=== PATIENT | female | born 1985 | race Caucasian/White ===

== ENCOUNTER 2019-02-10 21:15 | Inpatient (IN) ==
[2019-02-10] MEDS ORDERED: SODIUM CHLORIDE 0.9% 1000ML 1,000 ML IV ONE (21:35)
[2019-02-10] MEDS ORDERED: PIPERACILLIN/TAZOBACTAM 4.5 GM/120 ML BAG IV ONE (21:56)
[2019-02-10 21:58] LABS: Basophils # (auto) 0.01 K/uL (0-0.2); Basophils % (auto) 0.1 %; Eosinophils # (auto) 0.02 K/uL (0-0.5); Eosinophils % (auto) 0.2 %; Hematocrit (blood only) 37.1 % (37-47); Hemoglobin 12.6 g/dL (12.0-16.0); Immature Granulocytes # (auto) 0.05 K/uL (0.00-0.02); Immature Granulocytes % (auto) 0.6 %; Lymphocytes # (auto) 1.32 K/uL (1.2-3.4); Lymphocytes % (auto) 15.4 %; Mean Corpuscular Volume 105.1 fL (80-100); Mean Platelet Volume 9.4 fL (7.4-10.4); Monocytes # (auto) 0.59 K/uL (0.11-0.59); Monocytes % (auto) 6.9 %; Neutrophils # (auto) 6.58 K/uL (1.4-6.5); Neutrophils % (auto) 76.8 %; Platelet Count 237 K/uL (130-400); RDW Coefficient of Variation 12.6 % (11.5-14.5); RDW Standard Deviation 48.6 fL (36.4-46.3); Red Blood Count 3.53 M/uL (4.2-5.4); White Blood Count 8.57 K/uL (4.8-10.8)
[2019-02-10 22:06] LABS: Appearance Urine Clear (Clear); Bacteria Urine Automated Negative (Negative); Bilirubin Urine Negative (Negative); Blood Urine 2+ (Negative); Cast Urine Automated 0 /lpf (0-5); Color Urine Yellow; Glucose Urine UA Negative (Negative); Ketones Urine Negative (Negative); Leukocyte Esterase Urine Negative (Negative); Nitrite Urine Negative (Negative); Protein Urine Negative (Negative); Specific Gravity Urine 1.012 (1.000-1.030); Urobilinogen Urine Negative (Negative)
--- NOTE | 2019-02-10 22:06 | History & Physical Report ---
Date of Service February 10, 2019 Assessment & Plan (1) endometritis: 33 yo s/p on 01/30, Suction D&C for retained POC yesterday, now with fever/ chills/ abdominal pain suggesting endometritis Plan to admit, monitor, labs, IV AB for 48 hours and/ or 24 hours of afebrile All questions were answered History of Present Illness Chief Complaint: Fever and abdominal pain Primary Care Provider: Liana Aguirre DO Patient is a 33 yo s/p on 01/30, uncomplicated She was here in ER yesterday with increased vaginal bleeding, fever / chills, found to have retained Placenta She was taken to OR for Suction, D&C under US guidance She received Unasyn 1dose preop It was uncomplicated and she was sent home afterwards She started to feel " crappy" this afternoon with fever/ chills/ abdominal pain Bleeding had been minimal Her temp at home was 101.8 after 600 mg of Motrin Repeat was 101.4 She is sad and crying in her room now 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[employer] She is breast feeding and likes to bring her baby from home to stay with her Allergies Allergy/AdvReac Type Severity Reaction Status Date / Time shellfish derived Allergy Intermediate Nausea/Vomi Verified 02/10/19 22:03 ting/Diarrh ea Home Medications Home Medications Medication Instructions Recorded Confirmed Type 1 tab PO HS 02/09/19 02/09/19 History docusate sodium [Colace] 200 mg PO DAILY 02/09/19 02/09/19 History ibuprofen 600 mg PO Q6H #30 tab 02/09/19 Rx sertraline [Zoloft] 100 mg PO HS 02/09/19 02/09/19 History Patient History Medical History No significant past medical history No significant past surgical history Recent childbirth Social History Preferred Language: Kosovan Communication Ability: Effective Visual Impairment: No Limitations Hearing Ability: Normal Beliefs That Will Affect Care: None marital status: Current Living Situation: Spouse current occupational status: employed Feels Safe at Home: Yes Smoking Status: Never smoker Hx Alcohol Use: No OB History 4 FT [employer] History No h/o STD Review of Systems All systems reviewed & are unremarkable except as noted in HPI & below + cough throat irritation since surgery Physical Exam Constitutional: WD/WN, vitals as above well developed and well nourished Sad crying Eyes: PERRL, conjunctivae normal, anicteric sclerae ENMT: Normal oropharynx Respiratory: normal respiratory effort, lungs clear to auscultation normal respiratory effort Auscultation: lungs clear to auscultation bilaterally Cardiovascular: RRR, no murmur, no edema Rate/Rhythm: regular rate Heart Sounds: normal S1 and normal S2 Gastrointestinal (Abdomen): Tenderness on lower abdomen Musculoskeletal: Ext NT no edema Results & Data Vital Signs (Past 12 Hours) Vital Signs Temp Pulse Resp BP Pulse Ox 02/10/19 21:23 36.9 C 72 18 114/61 97
[2019-02-10 22:16] LABS: BUN Creatinine Ratio 14.3 (10-20); Calcium 8.1 mg/dl (8.5-10.1); Est GFR (African American) 113.2; Est GFR (Non-African American) 97.7; Potassium 3.8 mmol/L (3.5-5.1)
--- NOTE | 2019-02-10 23:07 | Emergency Department Note ---
Entered by Luke Campos acting as a scribe for Bogdan Parekh History of Present Illness General Chief complaint: Fever Stated complaint: POST , DNE FEVER Time Seen by Provider: 02/10/19 21:31 Source: patient History of Present Illness Provider complaint: Fever Onset (ago): hour(s) Location: left and right Maximum Pain Intensity: 4 Current Pain Intensity: 4 Associated symptoms: no chest pain, no nausea/vomiting and no shortness of breath The patient is a 33 year old female who presents to the Emergency Room with complaints of a fever that began today. The patient states she was seen yesterday and underwent an RN ER procedure. She is presently complaining of lower abdominal pain mostly in her suprapubic area in addition to the fever. Reports fever of 101 prior to arrival. Patient did take antipyretics prior to arrival. The patient denies nausea/vomiting, pain with urination, chest pain, and shortness of breath. Patient states that she spoke with RN ER [facility] disease and insect control boss who advised her to come into the emergency department today. Home Medications Home Medications Medication Instructions Recorded Confirmed Type 1 tab PO HS 02/09/19 02/10/19 History docusate sodium [Colace] 200 mg PO DAILY 02/09/19 02/10/19 History sertraline [Zoloft] 100 mg PO HS 02/09/19 02/10/19 History ibuprofen 600 mg PO Q6H PRN 02/10/19 02/10/19 History polyethylene glycol 3350 [Miralax] 17 g PO ONCE PRN 02/10/19 02/10/19 History Allergies Allergy/AdvReac Type Severity Reaction Status Date / Time shellfish derived Allergy Intermediate Nausea/Vomi Verified 02/10/19 22:03 ting/Diarrh ea Past Med/Surg History Medical History No significant past medical history No significant past surgical history Recent childbirth Social History Preferred Language: Yi Communication Ability: Effective Visual Impairment: No Limitations Hearing Ability: Normal Beliefs That Will Affect Care: None marital status: Current Living Situation: Spouse current occupational status: employed Feels Safe at Home: Yes Smoking Status: Never smoker Hx Alcohol Use: No Review of Systems See HPI for pertinent positives & negatives. and A total of 10 systems reviewed and were otherwise negative Physical Exam Vital Signs Vital Signs - 24 hr 02/10/19 21:23 Temperature 36.9 C Temperature Source Oral Sepsis Recent Fever Within 48 Hours Yes Sepsis Action Taken by Nursing No Action Required Pulse Rate 72 Respiratory Rate 18 Blood Pressure 114/61 Blood Pressure Mean 78 Blood Pressure Position Sitting Pulse Oximetry 97 Oxygen Delivery Method Room Air GENERAL: She is oriented to person, place, and time. She appears well-developed and well-nourished. She does not appear distressed. HENT: Exam performed. Head: Normocephalic and atraumatic. Right Ear: External ear normal. No mastoid tenderness. Left Ear: External ear normal. No mastoid tenderness. Mouth/Throat: The oropharynx is clear and moist. No trismus in the jaw. No dental abscesses or uvula swelling. No oropharyngeal exudate or tonsillar abscesses. EYES: Conjunctivae and EOM are normal. Pupils are equal, round, and reactive to light. Right eye exhibits no discharge. Left eye exhibits no discharge. No scleral icterus. NECK: Normal range of motion. Neck supple. No JVD present. No spinous process tenderness present. No carotid bruit present. No rigidity. No tracheal deviation and normal range of motion present. No Brudzinski's sign and no Kernig's sign noted. CV: Normal rate, regular rhythm, normal heart sounds and intact distal pulses. There is no peripheral edema. Palpable radial pulses bue. PULM/CHEST: Effort normal and breath sounds normal. No respiratory distress. No stridor. She has no wheezes. She has no rales. Chest Wall: She exhibits no tenderness. ABD: The abdomen is soft. Bowel sounds are normal. She has no distension. No mass is present. There is pain on palpation to the suprapubic area. There is no rebound, no guarding, no Maurice's sign and no tenderness at McBurney's point. Rovsig negative MUSC/SKEL: Normal range of motion. There is no peripheral edema, tenderness or deformity. LYMPH: No cervical adenopathy. NEURO: She is alert and oriented to person, place, and time. She has normal strength. No cranial nerve deficit or sensory deficit. Coordination and gait normal. GCS eye subscore is 4. GCS verbal subscore is 5. GCS motor subscore is 6. cerbellar tests wnl. SKIN: Skin is warm and dry. She is not diaphoretic. PSYCH: She has a normal mood and affect. Her behavior is normal. Judgment and thought content normal. Course 2131: The patient was evaluated in room B12. A complete history and physical exam was performed.The patient was seen yesterday at [place] [facility] 1 day. She was then sent to [facility]. At that time, she had leukocytosis of 11.2, US that showed 19mm heterogenous mass which was a retained product of conception. She underwent a dilation and evacuation. 2137: I spoke with Alda RN ER. She wants the patient admitted to her service, and wants her to receive a dose of Zosyn. Administered Medications Piperacillin Sod/Tazobactam Sod (Zosyn) 4.5 gm in 120 mls @ 30 mls/hr IV NOW ONE Stop: 02/11/19 01:55 Last Admin: 02/10/19 22:21 Dose: 30 mls/hr Documented by: [id number] Discontinued Medications Sodium Chloride (Nss 1000ml) 1,000 mls @ 999 mls/hr IV .Q1H1M ONE Stop: 02/10/19 22:35 Last Admin: 02/10/19 21:51 Dose: 999 mls/hr Documented by: [id number] Medical Decision Making Medical Records Attestation: I reviewed the patient's medical records. Home Medications Current Medication List: was personally reviewed by me Laboratory Data Attestation: I reviewed the patient's lab results. Result diagrams: 02/10/19 21:51 02/10/19 21:51 Lab Results 02/10/19 02/10/19 02/10/19 Range/Units 21:42 21:51 21:51 WBC 8.57 (4.8-10.8) K/uL RBC 3.53 L (4.2-5.4) M/uL Hgb 12.6 (12.0-16.0) g/dL Hct 37.1 (37-47) % MCV 105.1 H (80-100) fL MCH 35.7 H (25-34) pg MCHC 34.0 (32-36) g/dL RDW Std Deviation 48.6 H (36.4-46.3) fL RDW Coeff of [place] 12.6 (11.5-14.5) % Plt Count 237 (130-400) K/uL MPV 9.4 (7.4-10.4) fL Immature Gran % (Auto) 0.6 % Neut % (Auto) 76.8 % Lymph % (Auto) 15.4 % [place] % (Auto) 6.9 % Eos % (Auto) 0.2 % Baso % (Auto) 0.1 % Immature Gran # (Auto) 0.05 H (0.00-0.02) K/uL Neut # (Auto) 6.58 H (1.4-6.5) K/uL Lymph # (Auto) 1.32 (1.2-3.4) K/uL [place] # (Auto) 0.59 (0.11-0.59) K/uL Eos # (Auto) 0.02 (0-0.5) K/uL Baso # (Auto) 0.01 (0-0.2) K/uL Sodium 142 (136-145) mmol/L Potassium 3.8 (3.5-5.1) mmol/L Chloride 111 H (98-107) mmol/L Carbon Dioxide 23 (21-32) mmol/L Anion Gap 8.0 (3-11) BUN 11 (7-18) mg/dl Creatinine 0.79 (0.6-1.2) mg/dl Est Cr Clr Drug Dosing 108.0 ml/min Est GFR ( Amer) 113.2 Est GFR (Non-Af Amer) 97.7 BUN/Creatinine Ratio 14.3 (10-20) Glucose 92 (70-99) mg/dl Lactate (0.4-2.0) mmol/L Calcium 8.1 L (8.5-10.1) mg/dl Urine Color Yellow Urine Appearance Clear (Clear) Urine pH 7.0 (4.5-7.5) Ur Specific [place] 1.012 (1.000-1.030) Urine Protein Negative (Negative) Urine Glucose (UA) Negative (Negative) Urine Ketones Negative (Negative) Urine Blood 2+ H (Negative) Urine Nitrite Negative (Negative) Urine Bilirubin Negative (Negative) Urine Urobilinogen Negative (Negative) Ur Leukocyte Esterase Negative (Negative) Urine WBC (Auto) 1-5 (0-5) /hpf Urine RBC (Auto) 5-10 H (0-4) /hpf U Hyaline Cast (Auto) 0 (0-5) /lpf U Epithel Cells (Auto) 5-10 H (0-5) /lpf Urine Bacteria (Auto) Negative (Negative) 02/10/19 Range/Units 21:51 WBC (4.8-10.8) K/uL RBC (4.2-5.4) M/uL Hgb (12.0-16.0) g/dL Hct (37-47) % MCV (80-100) fL MCH (25-34) pg MCHC (32-36) g/dL RDW Std Deviation (36.4-46.3) fL RDW Coeff of [place] (11.5-14.5) % Plt Count (130-400) K/uL MPV (7.4-10.4) fL Immature Gran % (Auto) % Neut % (Auto) % Lymph % (Auto) % [place] % (Auto) % Eos % (Auto) % Baso % (Auto) % Immature Gran # (Auto) (0.00-0.02) K/uL Neut # (Auto) (1.4-6.5) K/uL Lymph # (Auto) (1.2-3.4) K/uL [place] # (Auto) (0.11-0.59) K/uL Eos # (Auto) (0-0.5) K/uL Baso # (Auto) (0-0.2) K/uL Sodium (136-145) mmol/L Potassium (3.5-5.1) mmol/L Chloride (98-107) mmol/L Carbon Dioxide (21-32) mmol/L Anion Gap (3-11) BUN (7-18) mg/dl Creatinine (0.6-1.2) mg/dl Est Cr Clr Drug Dosing ml/min Est GFR ( Amer) Est GFR (Non-Af Amer) BUN/Creatinine Ratio (10-20) Glucose (70-99) mg/dl Lactate 1.0 (0.4-2.0) mmol/L Calcium (8.5-10.1) mg/dl Urine Color Urine Appearance (Clear) Urine pH (4.5-7.5) Ur Specific [place] (1.000-1.030) Urine Protein (Negative) Urine Glucose (UA) (Negative) Urine Ketones (Negative) Urine Blood (Negative) Urine Nitrite (Negative) Urine Bilirubin (Negative) Urine Urobilinogen (Negative) Ur Leukocyte Esterase (Negative) Urine WBC (Auto) (0-5) /hpf Urine RBC (Auto) (0-4) /hpf U Hyaline Cast (Auto) (0-5) /lpf U Epithel Cells (Auto) (0-5) /lpf Urine Bacteria (Auto) (Negative) [facility] Narrative 2131: The patient was evaluated in room B12. A complete history and physical exam was performed.The patient was seen yesterday at [place] [facility] 1 day. She was then sent to [facility] ED. At that time, she had leukocytosis of 11.2, US that showed 19mm heterogenous mass which was a retained product of conception. She underwent a dilation and evacuation. 2137: I spoke with Alda RN ER. She wants the patient admitted to her service, and wants her to receive a dose of Zosyn. Impression & Plan Postoperative fever Discharge Plan Visit Data Chief Complaint: Fever Stated Complaint: POST , DNE FEVER ED Provider: Bogdan Parekh Discharge Problem: Postoperative fever Patient Disposition: Being Evaluated by Hospitalist Forms Stand Alone Forms: My [facility] Prescriptions Prescriptions: No Action sertraline [Zoloft] 100 mg Tablet 100 mg PO HS RF: 0 docusate sodium [Colace] 100 mg Capsule 200 mg PO DAILY RF: 0 28-800 mg-mcg Tablet 1 tab PO HS RF: 0 polyethylene glycol 3350 [Miralax] 17 gram Powder In Packet 17 g PO ONCE PRN (Reason: Constipation) RF: 0 ibuprofen 600 mg tablet 600 mg PO Q6H PRN (Reason: Pain) RF: 0 Referrals Referrals: Liana Aguirre DO [Primary Care Provider] - The scribe's documentation has been prepared under my direction and personally reviewed by me in its entirety. I confirm that the note above accurately reflects all work, treatment, procedures, and medical decision making performed by me.
[2019-02-10] MEDS ORDERED: PIPERACILL/TAZOBAC CONSULT ACTIVE PRN (23:27)
[2019-02-11] MEDS ORDERED: LACTATED RINGER'S 1,000 ML IV SCH (00:43)
[2019-02-11] MEDS ORDERED: ONDANSETRON INJ 2 MG/ML 2 ML VIAL IV PRN (00:43)
[2019-02-11] MEDS: IBUPROFEN 600 MG TAB PO PRN ×3 (00:54→14:33)
[2019-02-11] MEDS ORDERED: PIPERACILLIN/TAZOBACTAM 4.5 GM in DEXTROSE 5% 100 ML IV SCH (04:00)
[2019-02-11] MEDS: ACETAMINOPHEN 325 MG TAB PO PRN ×3 (04:20→20:08)
[2019-02-11] MEDS: PIPERACILLIN/TAZOBACTAM 3.375 GM in DEXTROSE 5% 100 ML IV SCH ×3 (04:22→20:09)
[2019-02-11 07:01] LABS: Basophils # (auto) 0.02 K/uL (0-0.2); Basophils % (auto) 0.3 %; Eosinophils # (auto) 0.02 K/uL (0-0.5); Eosinophils % (auto) 0.3 %; Hemoglobin 11.9 g/dL (12.0-16.0); Immature Granulocytes # (auto) 0.06 K/uL (0.00-0.02); Immature Granulocytes % (auto) 0.9 %; Lymphocytes # (auto) 1.38 K/uL (1.2-3.4); Lymphocytes % (auto) 20.9 %; Mean Corpuscular Hgb Conc 33.1 g/dL (32-36); Mean Corpuscular Volume 106.5 fL (80-100); Mean Platelet Volume 9.5 fL (7.4-10.4); Monocytes # (auto) 0.52 K/uL (0.11-0.59); Monocytes % (auto) 7.9 %; Neutrophils # (auto) 4.61 K/uL (1.4-6.5); Neutrophils % (auto) 69.7 %; Platelet Count 222 K/uL (130-400); Red Blood Count 3.38 M/uL (4.2-5.4); White Blood Count 6.61 K/uL (4.8-10.8)
[2019-02-11 07:32] LABS: Albumin Level 2.2 gm/dl (3.4-5.0); BUN Creatinine Ratio 13.4 (10-20); Calcium 7.4 mg/dl (8.5-10.1); Creatinine Clr Calc Pharmacy 121.9 ml/min; Potassium 3.5 mmol/L (3.5-5.1)
[2019-02-11 07:41] LABS: Albumin Globulin Ratio 0.6 (0.9-2); Bilirubin,Total 0.2 mg/dl (0.2-1); Globulin 3.4 gm/dl (2.5-4.0); Total Protein 5.6 gm/dl (6.4-8.2)
[2019-02-11] MEDS: DOCUSATE SODIUM 100 MG CAP PO SCH (09:05)
--- NOTE | 2019-02-11 09:16 | Obstetrical Progress Note ---
Date of Service February 11, 2019 Subjective Patient is seen and examined. She feels better in terms of abdominal pain and general symptoms Complains of cold sore she got this morning, desires Acyclovir cream. Ambulating without dizziness Voiding without difficulty Tolerating regular diet with out N&V Bleeding is minimal No fever/ chills/ CP/ SOB/ N&V/ Leg pain Pumping breast milk without problems Vital Signs Temp Pulse Pulse Resp BP BP Pulse Ox 02/11/19 04:20 36.9 C 64 18 112/73 97 02/11/19 01:02 37.4 C 67 20 107/64 98 02/11/19 00:06 62 16 110/62 100 02/10/19 23:15 59 L 16 108/60 100 02/10/19 21:23 36.9 C 72 18 114/61 97 02/11/19 02/11/19 02/10/19 Range/Units 06:43 06:43 21:51 WBC 6.61 (4.8-10.8) K/uL RBC 3.38 L (4.2-5.4) M/uL Hgb 11.9 L (12.0-16.0) g/dL Hct 36.0 L (37-47) % MCV 106.5 H (80-100) fL MCH 35.2 H (25-34) pg MCHC 33.1 (32-36) g/dL RDW Std Deviation 51.0 H (36.4-46.3) fL RDW Coeff of [place] 13.0 (11.5-14.5) % Plt Count 222 (130-400) K/uL MPV 9.5 (7.4-10.4) fL Immature Gran % (Auto) 0.9 % Neut % (Auto) 69.7 % Lymph % (Auto) 20.9 % [place] % (Auto) 7.9 % Eos % (Auto) 0.3 % Baso % (Auto) 0.3 % Immature Gran # (Auto) 0.06 H (0.00-0.02) K/uL Neut # (Auto) 4.61 (1.4-6.5) K/uL Lymph # (Auto) 1.38 (1.2-3.4) K/uL [place] # (Auto) 0.52 (0.11-0.59) K/uL Eos # (Auto) 0.02 (0-0.5) K/uL Baso # (Auto) 0.02 (0-0.2) K/uL Sodium 142 (136-145) mmol/L Potassium 3.5 (3.5-5.1) mmol/L Chloride 112 H (98-107) mmol/L Carbon Dioxide 25 (21-32) mmol/L Anion Gap 5.0 (3-11) BUN 9 (7-18) mg/dl Creatinine 0.70 (0.6-1.2) mg/dl Est Cr Clr Drug Dosing 121.9 ml/min Est GFR ( Amer) 131.0 Est GFR (Non-Af Amer) 113.0 BUN/Creatinine Ratio 13.4 (10-20) Glucose 105 H (70-99) mg/dl Lactate 1.0 (0.4-2.0) mmol/L Calcium 7.4 L (8.5-10.1) mg/dl Total Bilirubin 0.2 (0.2-1) mg/dl AST 16 (15-37) U/L ALT 21 (12-78) U/L Alkaline Phosphatase 77 (45-117) U/L Total Protein 5.6 L (6.4-8.2) gm/dl Albumin 2.2 L (3.4-5.0) gm/dl Globulin 3.4 (2.5-4.0) gm/dl Albumin/Globulin Ratio 0.6 L (0.9-2) Urine Color Urine Appearance (Clear) Urine pH (4.5-7.5) Ur Specific [place] (1.000-1.030) Urine Protein (Negative) Urine Glucose (UA) (Negative) Urine Ketones (Negative) Urine Blood (Negative) Urine Nitrite (Negative) Urine Bilirubin (Negative) Urine Urobilinogen (Negative) Ur Leukocyte Esterase (Negative) Urine WBC (Auto) (0-5) /hpf Urine RBC (Auto) (0-4) /hpf U Hyaline Cast (Auto) (0-5) /lpf U Epithel Cells (Auto) (0-5) /lpf Urine Bacteria (Auto) (Negative) 02/10/19 02/10/19 02/10/19 Range/Units 21:51 21:51 21:42 WBC 8.57 (4.8-10.8) K/uL RBC 3.53 L (4.2-5.4) M/uL Hgb 12.6 (12.0-16.0) g/dL Hct 37.1 (37-47) % MCV 105.1 H (80-100) fL MCH 35.7 H (25-34) pg MCHC 34.0 (32-36) g/dL RDW Std Deviation 48.6 H (36.4-46.3) fL RDW Coeff of [place] 12.6 (11.5-14.5) % Plt Count 237 (130-400) K/uL MPV 9.4 (7.4-10.4) fL Immature Gran % (Auto) 0.6 % Neut % (Auto) 76.8 % Lymph % (Auto) 15.4 % [place] % (Auto) 6.9 % Eos % (Auto) 0.2 % Baso % (Auto) 0.1 % Immature Gran # (Auto) 0.05 H (0.00-0.02) K/uL Neut # (Auto) 6.58 H (1.4-6.5) K/uL Lymph # (Auto) 1.32 (1.2-3.4) K/uL [place] # (Auto) 0.59 (0.11-0.59) K/uL Eos # (Auto) 0.02 (0-0.5) K/uL Baso # (Auto) 0.01 (0-0.2) K/uL Sodium 142 (136-145) mmol/L Potassium 3.8 (3.5-5.1) mmol/L Chloride 111 H (98-107) mmol/L Carbon Dioxide 23 (21-32) mmol/L Anion Gap 8.0 (3-11) BUN 11 (7-18) mg/dl Creatinine 0.79 (0.6-1.2) mg/dl Est Cr Clr Drug Dosing 108.0 ml/min Est GFR ( Amer) 113.2 Est GFR (Non-Af Amer) 97.7 BUN/Creatinine Ratio 14.3 (10-20) Glucose 92 (70-99) mg/dl Lactate (0.4-2.0) mmol/L Calcium 8.1 L (8.5-10.1) mg/dl Total Bilirubin (0.2-1) mg/dl AST (15-37) U/L ALT (12-78) U/L Alkaline Phosphatase (45-117) U/L Total Protein (6.4-8.2) gm/dl Albumin (3.4-5.0) gm/dl Globulin (2.5-4.0) gm/dl Albumin/Globulin Ratio (0.9-2) Urine Color Yellow Urine Appearance Clear (Clear) Urine pH 7.0 (4.5-7.5) Ur Specific [place] 1.012 (1.000-1.030) Urine Protein Negative (Negative) Urine Glucose (UA) Negative (Negative) Urine Ketones Negative (Negative) Urine Blood 2+ H (Negative) Urine Nitrite Negative (Negative) Urine Bilirubin Negative (Negative) Urine Urobilinogen Negative (Negative) Ur Leukocyte Esterase Negative (Negative) Urine WBC (Auto) 1-5 (0-5) /hpf Urine RBC (Auto) 5-10 H (0-4) /hpf U Hyaline Cast (Auto) 0 (0-5) /lpf U Epithel Cells (Auto) 5-10 H (0-5) /lpf Urine Bacteria (Auto) Negative (Negative) PE: General: Alert, orientedx3, NAD Abd: soft, NT, fundus firm, below Umbilicus Perineum intact, Lochia rubra minimal Ext; NT, no edema AP: 33 yo s/p on 01/30, Suction D&C on 02/09 Admitted for endometritis On Zosyn VSS Afebrile doing well Continue to monitor All questions were answered D/C home tomorrow Results & Data Vital Signs (Past 12 Hours) Vital Signs Temp Pulse Pulse Resp BP BP Pulse Ox 02/11/19 04:20 36.9 C 64 18 112/73 97 02/11/19 01:02 37.4 C 67 20 107/64 98 02/11/19 00:06 62 16 110/62 100 02/10/19 23:15 59 L 16 108/60 100 02/10/19 21:23 36.9 C 72 18 114/61 97
[2019-02-11] MEDS: ACYCLOVIR 5% OINT 15 GM TUBE EXT SCH ×3 (09:53→21:20)
[2019-02-11] MEDS ORDERED: PRENATAL VITAMIN 1 TAB PO SCH (21:00)
[2019-02-11] MEDS ORDERED: SERTRALINE HCL 100 MG TABLET PO SCH (21:00)
[2019-02-12] MEDS: IBUPROFEN 600 MG TAB PO PRN ×2 (00:26→08:09)
[2019-02-12] MEDS: PIPERACILLIN/TAZOBACTAM 3.375 GM in DEXTROSE 5% 100 ML IV SCH (04:25)
[2019-02-12 07:01] LABS: Creatinine Clr Calc Pharmacy 112.3 ml/min; Est GFR (African American) 118.6; Est GFR (Non-African American) 102.3
[2019-02-12] MEDS: DOCUSATE SODIUM 100 MG CAP PO SCH (08:08)
[2019-02-12] MEDS: ACYCLOVIR 5% OINT 15 GM TUBE EXT SCH (08:09)
--- NOTE | 2019-02-12 09:44 | Obstetrical Progress Note ---
Date of Service February 12, 2019 Subjective doing well plans to be discharged Physical Exam Constitutional: WD/WN, vitals as above comfortable Abdomen soft non-tender no edema neg Nadege's for discharge Results & Data Vital Signs (Past 12 Hours) Vital Signs Temp Pulse Resp BP Pulse Ox 02/12/19 08:27 36.7 C 58 L 18 109/69 96 02/12/19 04:15 36.5 C 56 L 16 120/75 98 02/12/19 00:15 36.7 C 66 18 114/69 96 Laboratory Results Laboratory Results - last 72 hr 02/10/19 02/10/19 02/10/19 21:42 21:51 21:51 WBC 8.57 RBC 3.53 L Hgb 12.6 Hct 37.1 MCV 105.1 H MCH 35.7 H MCHC 34.0 RDW Std Deviation 48.6 H RDW Coeff of [place] 12.6 Plt Count 237 MPV 9.4 Immature Gran % (Auto) 0.6 Neut % (Auto) 76.8 Lymph % (Auto) 15.4 [place] % (Auto) 6.9 Eos % (Auto) 0.2 Baso % (Auto) 0.1 Immature Gran # (Auto) 0.05 H Neut # (Auto) 6.58 H Lymph # (Auto) 1.32 [place] # (Auto) 0.59 Eos # (Auto) 0.02 Baso # (Auto) 0.01 Sodium 142 Potassium 3.8 Chloride 111 H Carbon Dioxide 23 Anion Gap 8.0 BUN 11 Creatinine 0.79 Est Cr Clr Drug Dosing 108.0 Est GFR ( Amer) 113.2 Est GFR (Non-Af Amer) 97.7 BUN/Creatinine Ratio 14.3 Glucose 92 Lactate Calcium 8.1 L Total Bilirubin AST ALT Alkaline Phosphatase Total Protein Albumin Globulin Albumin/Globulin Ratio Urine Color Yellow Urine Appearance Clear Urine pH 7.0 Ur Specific [place] 1.012 Urine Protein Negative Urine Glucose (UA) Negative Urine Ketones Negative Urine Blood 2+ H Urine Nitrite Negative Urine Bilirubin Negative Urine Urobilinogen Negative Ur Leukocyte Esterase Negative Urine WBC (Auto) 1-5 Urine RBC (Auto) 5-10 H U Hyaline Cast (Auto) 0 U Epithel Cells (Auto) 5-10 H Urine Bacteria (Auto) Negative 02/10/19 02/11/19 02/11/19 21:51 06:43 06:43 WBC 6.61 RBC 3.38 L Hgb 11.9 L Hct 36.0 L MCV 106.5 H MCH 35.2 H MCHC 33.1 RDW Std Deviation 51.0 H RDW Coeff of [place] 13.0 Plt Count 222 MPV 9.5 Immature Gran % (Auto) 0.9 Neut % (Auto) 69.7 Lymph % (Auto) 20.9 [place] % (Auto) 7.9 Eos % (Auto) 0.3 Baso % (Auto) 0.3 Immature Gran # (Auto) 0.06 H Neut # (Auto) 4.61 Lymph # (Auto) 1.38 [place] # (Auto) 0.52 Eos # (Auto) 0.02 Baso # (Auto) 0.02 Sodium 142 Potassium 3.5 Chloride 112 H Carbon Dioxide 25 Anion Gap 5.0 BUN 9 Creatinine 0.70 Est Cr Clr Drug Dosing 121.9 Est GFR ( Amer) 131.0 Est GFR (Non-Af Amer) 113.0 BUN/Creatinine Ratio 13.4 Glucose 105 H Lactate 1.0 Calcium 7.4 L Total Bilirubin 0.2 AST 16 ALT 21 Alkaline Phosphatase 77 Total Protein 5.6 L Albumin 2.2 L Globulin 3.4 Albumin/Globulin Ratio 0.6 L Urine Color Urine Appearance Urine pH Ur Specific [place] Urine Protein Urine Glucose (UA) Urine Ketones Urine Blood Urine Nitrite Urine Bilirubin Urine Urobilinogen Ur Leukocyte Esterase Urine WBC (Auto) Urine RBC (Auto) U Hyaline Cast (Auto) U Epithel Cells (Auto) Urine Bacteria (Auto) 02/12/19 06:06 WBC RBC Hgb Hct MCV MCH MCHC RDW Std Deviation RDW Coeff of [place] Plt Count MPV Immature Gran % (Auto) Neut % (Auto) Lymph % (Auto) [place] % (Auto) Eos % (Auto) Baso % (Auto) Immature Gran # (Auto) Neut # (Auto) Lymph # (Auto) [place] # (Auto) Eos # (Auto) Baso # (Auto) Sodium Potassium Chloride Carbon Dioxide Anion Gap BUN Creatinine 0.76 Est Cr Clr Drug Dosing 112.3 Est GFR ( Amer) 118.6 Est GFR (Non-Af Amer) 102.3 BUN/Creatinine Ratio Glucose Lactate Calcium Total Bilirubin AST ALT Alkaline Phosphatase Total Protein Albumin Globulin Albumin/Globulin Ratio Urine Color Urine Appearance Urine pH Ur Specific [place] Urine Protein Urine Glucose (UA) Urine Ketones Urine Blood Urine Nitrite Urine Bilirubin Urine Urobilinogen Ur Leukocyte Esterase Urine WBC (Auto) Urine RBC (Auto) U Hyaline Cast (Auto) U Epithel Cells (Auto) Urine Bacteria (Auto)
--- NOTE | 2019-03-06 15:45 | Discharge Summary ---
REASON FOR ADMISSION AND HOSPITAL COURSE: The patient is a 33-year-old 4, para 4-0-0-4, status post on 01/30 by me with suction D and C for retained products of conception after she had delivered at [facility]. She presents with fever, chills, abdominal pain, possible endometritis. The patient was admitted. Her vital signs on admission included temperature of 36.9, pulse 72, blood pressure 114/61. She was placed on IV antibiotics and subsequently did well. She was discharged home 02/12/2019 in stable condition. Home going instructions were given. She was given antibiotics to go home with and will be seen in the office in 1 week for a followup. DIAGNOSIS: endometritis. Follow up in the office. CONDITION ON DISCHARGE: Stable. SUSHMA
== END 2019-02-12 11:15 | disposition home or self-care (01) | DRG 776 ==
LOC: ED 21:15 → 4S2 22:47
DX: O86.12 Endometritis following delivery